=== PATIENT | female | born 1965 | race Caucasian/White ===

== ENCOUNTER 2021-03-11 10:14 | Emergency (ER) | payer BC, MEDICAID ==
[~2021-03-11] VITALS: Ht 149.9 cm; Wt 58.9 kg
[~2021-03-11 10:14] MED LIST: CYAN100087 PO; IRON150C13 PO; LEVO250T58 PO; MELA3TAB39 PO; MULT-1085 PO; PANT40TA54 PO; SERT25TA PO; SIMV10TA2 PO
[2021-03-11 11:13] LABS: CLARITY,URINE TURBID (Clear); COLOR,URINE RED (Yellow); GLUCOSE, URINE NEGATIVE (Neg); KETONES,URINE NEGATIVE (Neg); LEUKOCYTE ESTERASE ,URINE TRACE (Neg); NITRITES, URINE NEGATIVE (Neg); OCCULT BLOOD,URINE LARGE (Neg); PROTEIN,URINE 100 mg/dl (Neg); UROBILINOGEN,URINE 0.2 E.U/dL (0.2-1.0)
[2021-03-11 11:41] LABS: RBC,URINE TNTC /HPF (0-2); UA COLLECTION TYPE CLN CATCH MIDSTREAM
[2021-03-11 11:42] LABS: SQUAMOUS EPITHELIAL CELL,UR FEW /LPF (FEW)
[2021-03-11 11:44] LABS: BACTERIA,URINE FEW /HPF (Neg); WBC,URINE 0-4 /HPF (0-4)
[2021-03-11] MEDS ORDERED: CEPH-585 PO (12:03)
[2021-03-11] MEDS ORDERED: cephalexin 250mg capsule PO ONE (12:05)
[2021-03-11] MEDS ORDERED: cephalexin 500mg capsule PO ONE (12:10)
[2021-03-11 12:25] VITALS: BP 127/90
== END 2021-03-11 12:27 | disposition home or self-care (01) ==
LOC: ER 10:14
DX: N39.0 Urinary tract infection, site not specified (principal); E78.00 Pure hypercholesterolemia, unspecified; G89.29 Other chronic pain; F32.9 Major depressive disorder, single episode, unspecified; Z86.2 Personal history of diseases of the blood and blood-forming organs and certain disorders involving the immune mechanism; Z87.442 Personal history of urinary calculi; Z56.0 Unemployment, unspecified; Z98.890 Other specified postprocedural states; Z88.2 Allergy status to sulfonamides; Z79.899 Other long term (current) drug therapy
CPT/HCPCS: 81001; 87088; 99283